=== PATIENT | male | born 1945 | race Caucasian/White ===

== ENCOUNTER → 2016-04-14 | Outpatient (CLI) | payer MEDICARE, OTHER ==
[~2016-04-14] MED LIST: ASPI325T4 PO; CALC1TAB75 PO; HYDR-3498 PO; LEVO25TA53 PO; LEVO500T72 PO; METO10TA92 PO; PANT40TA3 PO; SIMV5TAB50 PO; TERA2CAP3 PO
[2016-04-14 11:06] LABS: ADD SCAN DIFF NO
[2016-04-14 11:12] LABS: BASOPHILS % 0.5 % (0.0-2.0); EOSINOPHILS # 0.1 10^3/ul (0.0-0.5); EOSINOPHILS % 2.4 % (0.0-7.0); HEMATOCRIT 45.5 % (42.0-52.0); HEMOGLOBIN 15.4 g/dl (14.0-18.0); LYMPHOCYTES # 1.6 10^3/ul (0.8-2.9); LYMPHOCYTES % 27.7 % (15.0-51.0); MEAN CORPUSCULAR HEMOGLOBIN 30.6 pg (29.0-33.0); MEAN CORPUSCULAR HGB CONC 33.8 g/dl (32.0-37.0); MEAN CORPUSCULAR VOLUME 90.3 fl (82.0-101.0); MEAN PLATELET VOLUME 9.6 fl (7.4-10.4); MONOCYTE # 0.5 10^3/ul (0.3-0.9); NEUTROPHIL # 3.5 10^3/ul (1.6-7.5); NEUTROPHILS % 61.1 % (39.0-77.0); PLATELET COUNT 171 10^3/UL (140-415); RED BLOOD COUNT 5.04 10^6/ul (4.70-6.10); RED CELL DISTRIBUTION WIDTH 12.7 % (11.5-14.5); WHITE BLOOD COUNT 5.8 10^3/ul (4.8-10.8)
[2016-04-14 11:19] LABS: ALBUMIN 4.1 g/dl (3.3-4.9)
[2016-04-14 11:20] LABS: POTASSIUM 4.6 mmol/L (3.5-5.1)
[2016-04-14 11:22] LABS: BILIRUBIN,INDIRECT 0.8 mg/dl (0-1.1); BILIRUBIN,TOTAL 0.8 mg/dl (0.2-1.3); CREATININE 1.05 mg/dl (0.61-1.24); TOTAL PROTEIN 7.9 g/dl (6.1-8.1)
[2016-04-14 11:23] LABS: ALBUMIN/GLOBULIN RATIO 1.07; CALCIUM 9.4 mg/dl (8.4-10.2); CHOL/HDL RATIO 3.9 RATIO
[2016-04-14 12:51] LABS: THYROID STIMULATING HORMONE 3.82 MIU/L (0.465-4.680)
== END | disposition home or self-care (01) ==
LOC: LAB 09:39
PROVIDERS: ATTEND Internal Medicine Interventional Cardiology
DX: E78.00 Pure hypercholesterolemia, unspecified (principal); R53.83 Other fatigue
CPT/HCPCS: 80053; 80061; 84443; 85025